=== PATIENT | female | born 1990 | race Caucasian/White ===

== ENCOUNTER 2019-03-25 14:16 | Emergency (ER) | payer OTHER ==
[2019-03-25 14:41] VITALS: TEMP 97.6; BMI 23.3
--- NOTE | 2019-03-25 14:59 | PDOC ---
History of Present Illness - General Chief Complaint: Migraine Headache Stated Complaint: NUMBNESS History Source: Patient Exam Limitations: No Limitations - History of Present Illness Initial Comments: 03/25/19 15:04 28 yo F with a hx of headaches and started at 8pm yesterday with R leg arm and face weakness and decreased sensatrion. headache on the right side. visual change blurry in the right eye. awoke this morning and was improved, but had residual decreased sensation in right arm and decreased motor. headache migrated to the superior aspect and now frontal and posterior. 6/10. dull pain. Questionable hx of bells vs cva 7 years ago; left face and left arm weakness with 2 months of duration that resolved on its own. had nausea yesterday. ROS negative today Past History - Past Medical History Allergies/Adverse Reactions: Allergies Allergy/AdvReac Type Severity Reaction Status Date / Time No Known Allergies Allergy Verified 03/25/19 14:28 Home Medications: Ambulatory Orders NK [No Known Home Medication] 03/25/19 CVA: Yes (cva or bells palsy ?) COPD: No - Suicide/Smoking/Psychosocial Hx Smoking History: Never smoked Have you smoked in the past 12 months: No Information on smoking cessation initiated: No Hx Alcohol Use: No Drug/Substance Use Hx: No *Physical Exam - Vital Signs Last Vital Signs Temp Pulse Resp BP Pulse Ox 97.6 F 74 18 101/58 L 100 03/25/19 14:29 03/25/19 14:29 03/25/19 14:29 03/25/19 14:29 03/25/19 14:29 ED Treatment Course - LABORATORY CBC & Chemistry Diagram: 03/25/19 15:09 03/25/19 15:09 *DC/Admit/Observation/Transfer Diagnosis at time of Disposition: Headache Qualifiers: Headache type: unspecified Headache chronicity pattern: unspecified pattern Intractability: not intractable Qualified Code(s): R51 - Headache - Discharge Dispostion Disposition: HOME Decision to Admit order: No - Referrals Referrals: [facility] [Provider Group] Harvinder Boland DO [Staff Physician] - - Patient Instructions Printed Discharge Instructions: DI for Migraine, DI for Headache Additional Instructions: You were seen in the emergency department for the evaluation of your headache. you are declining the head ct and ct of the cervical spine. your labs were within normal limits. please follow up with the neurologist in 1 week after discharge for follow up care and management. please return to the emergency department if you have worsening symptoms or new concerning symptoms such as fever, chills, neck stiffness, confusion, and intractable nausea and vomiting. thank you. - Post Discharge Activity Forms/Work/School Notes: Back to Work
[2019-03-25] MEDS ORDERED: SODIUM CHLORIDE 1,000 ML IV STA (15:03)
[2019-03-25] MEDS ORDERED: ACETAMINOPHEN 1000 MG/100 ML VIAL (NON FORMULARY) IVPB ONE (15:03)
[2019-03-25] MEDS ORDERED: METOCLOPRAMIDE HCL INJECTION 10 MG/2 ML VIAL IVPB ONE (15:03)
[2019-03-25 15:22] LABS: BASO % 1.4 % (0-2.0); HEMATOCRIT 39.8 % (32.4-45.2); HEMOGLOBIN 13.2 GM/dL (10.7-15.3); LYMPH % 26.8 % (8-40); MEAN CELL VOLUME 90.7 fl (80-96); MEAN PLT VOLUME 8.5 fl (7.5-11.1); MONO % 9.3 % (3.8-10.2); NEUT % 54.5 % (42.8-82.8); PLATELET COUNT 223 K/MM3 (134-434); RBC 4.39 M/mm3 (3.60-5.2); RDW 12.8 % (11.6-15.6)
[2019-03-25 15:30] LABS: EPI CELLS 3.8 /HPF (0-5/HPF); URINE APPEARANCE CLEAR; URINE BACTERIA 157.3 /hpf (NEGATIVE); URINE BILIRUBIN NEGATIVE (NEGATIVE); URINE CASTS 4 /lpf (0-8); URINE COLOR YELLOW; URINE GLUCOSE (UA) NEGATIVE (NEGATIVE); URINE KETONE TRACE (NEGATIVE); URINE LEUK ESTERASE 1+ (NEGATIVE); URINE NITRITE NEGATIVE (NEGATIVE); URINE PROTEIN NEGATIVE (NEGATIVE); URINE RBC 6 /hpf (0-4); URINE WBC 3 /hpf (0-5)
[2019-03-25 15:31] LABS: HCG,QUALITATIVE URINE Negative
[2019-03-25] MEDS ORDERED: ACETAMINOPHEN INJECTION 100 ML IVPB ONE (15:33)
[2019-03-25] MEDS ORDERED: METOCLOPRAMIDE HCL INJECTION 10 MG/2 ML VIAL ONE (15:33)
[2019-03-25 15:56] LABS: ALBUMIN 3.9 g/dl (3.4-5.0); ALK PHOS 47 U/L (45-117); ANION GAP 5 MMOL/L (8-16); BILIRUBIN,TOTAL 0.4 mg/dL (0.2-1); BLOOD UREA NITROGEN 15 mg/dL (7-18); CHLORIDE 106 mmol/L (98-107); CO2 26 mmol/L (21-32); CREATININE 0.8 mg/dL (0.55-1.3); GLUCOSE,RANDOM 87 mg/dL (74-106); POTASSIUM 3.9 mmol/L (3.5-5.1); SGOT/AST 11 U/L (15-37); SGPT/ALT 16 U/L (13-61); SODIUM 137 mmol/L (136-145); TOT PROT 7.2 g/dl (6.4-8.2)
[2019-03-25 17:17] VITALS: BP 109/62; PULSE 69
--- NOTE | 2019-03-25 18:58 | PDOC ---
Documentation entered by Carly Estrada SCRIBE, acting as scribe for Carmela Swartz MD. Carmela Swartz MD: This documentation has been prepared by the Sean harris Nirvannie, SCRIBE, under my direction and personally reviewed by me in its entirety. I confirm that the documentation accurately reflects all work, treatment, procedures, and medical decision making performed by me. Attending Attestation - Resident Resident Name: Tahir Soares - ED Attending Attestation I have performed the following: I have examined & evaluated the patient, The case was reviewed & discussed with the resident, I agree w/resident's findings & plan - HPI HPI: 03/25/19 17:01 The patient is a 28 year old female, with a significant past medical history of headaches, who presents to the emergency department with, right sided headache with associated right eye blurriness, right upper and lower extremity numbness. Pt endorses numbness onset at 8pm yesterday and headache onset prior. Allergies: NKDA - Physicial Exam PE: 03/25/19 18:55 GENERAL: The patient is in no acute distress. ENT: Ears normal, nares patent, oropharynx clear without exudates. Moist mucous membranes. NECK: Normal range of motion, supple, no nuchal rigidity LUNGS: Breath sounds equal, clear to auscultation bilaterally. No wheezes, and no crackles. HEART:Regular rate and rhythm, normal S1 and S2 without murmur, rub or gallop. ABDOMEN: Soft, nontender, normoactive bowel sounds. EXTREMITIES: Normal range of motion, no edema. NEUROLOGICAL: Cranial nerves II through XII grossly intact. Normal speech. No focal neurological deficits. SKIN: Warm, Dry, normal turgor, no rashes or lesions noted. - Medical Decision Making 03/25/19 18:56 Blanca is a 28-year-old female who is otherwise healthy presents emergency department with a headache. Patient states her symptoms have been present for several days, no associated nausea or vomiting. No associated light sensitivity. Patient states her headache has moved to different areas of her head. Upon arrival to emergency department. Was on the right side of her head. She become concerned when she noted some numbness on the right side of her body. 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 Has not slept more than an hour in over a week. She denies head trauma. She denies fevers or chills. She denies nuchal rigidity. She has no family history of aneurysm, sudden . Arrival to assess her, patient had already gotten Tylenol and Reglan. Patient states her pain started at 6/10, pain is now 0/10. Patient examination is normal 03/25/19 18:57 Labs wnl Pt unable to stay for CT Given pain has improved to ZERO will discharge to home Follow up with PMD and with Neuro Return to the ER for any other concerns or complaints Clinical impression: tension headache, initial presentation
== END 2019-03-25 17:17 | disposition home or self-care (01) ==
LOC: JER 14:16
PROC: 3E033NZ Introduction of Analgesics, Hypnotics, Sedatives into Peripheral Vein, Percutaneous Approach (ICD-10-PCS; principal; 2019-03-25)
PROC: 3E033GC Introduction of Other Therapeutic Substance into Peripheral Vein, Percutaneous Approach (ICD-10-PCS; 2019-03-25)
PROC: 3E0337Z Introduction of Electrolytic and Water Balance Substance into Peripheral Vein, Percutaneous Approach (ICD-10-PCS; 2019-03-25)
DX: R51 Headache (principal)
CPT/HCPCS: 36415; 80053; 81003; 84703; 85025; 87086; 99283-25; J0131; J7030